=== PATIENT | female | born 1970 | race African-American/Black ===

== ENCOUNTER 2022-05-05 19:54 | Emergency (ER) | payer OTHER ==
[2022-05-05 20:06] VITALS: BP 189/109; PULSE 94; RESP 18; TEMP 97.9
[2022-05-05] MEDS ORDERED: dexAMETHasone 2 MG TAB PO STA (20:53)
--- NOTE | 2022-05-05 21:57 | XR ---
EXAMINATION TYPE: XR chest 2V DATE OF EXAM: 05/05/2022 COMPARISON: NONE HISTORY: Cough TECHNIQUE: 2 views FINDINGS: Heart and mediastinum are normal. Lungs are clear. Diaphragm is normal. Bony thorax is inta ct. There is cervical spine fusion surgery. IMPRESSION: Normal chest.
[2022-05-05] MEDS ORDERED: AZITHROMYCIN 500 MG TAB PO STA (22:49)
--- NOTE | 2022-05-05 22:53 | ED ---
General Adult HPI - General Chief complaint: ENT Stated complaint: IRINEO, throat pain Time Seen by Provider: 05/05/22 20:40 Source: patient, RN notes reviewed, old records reviewed Mode of arrival: ambulatory Limitations: no limitations - History of Present Illness Initial comments: Patient is a 51-year-old female who presents with Department complaining of upper respiratory type symptoms. Is a history of extensive neck surgeries as well as thyroid surgeries. Complaining of a cough, shortness of breath for the last day or so. Denies a sore throat but states that her throat feels swollen. She is [id number] nasal spray and Benadryl and felt better. Presents for further evaluation. States and the symptoms of struck multiple people at her work. She was not vaccinated for COVID-19. Endorses a nonproductive cough. Denies chest pain, abdominal pain, nausea, vomiting. Denies any difficulty swallowing or breathing. Denies headache. Denies ear pain. Does endorse some rhinorrhea. His no other acute complaint at this time. States she has expressed this before, and used her family members albuterol inhaler last year which did improve her symptoms. - Related Data Home Medications Medication Instructions Recorded Confirmed Cetirizine HCl [Zyrtec] 10 mg PO HS 05/05/22 05/05/22 diphenhydrAMINE HCL [Benadryl] 25 mg PO BID PRN 05/05/22 05/05/22 Previous Rx's Medication Instructions Recorded Albuterol Inhaler [Ventolin Hfa 1 puff INHALATION RT-QID #8 gm 05/05/22 Inhaler] Azithromycin [Zithromax] 250 mg PO DAILY 4 Days #4 tab 05/05/22 Allergies Allergy/AdvReac Type Severity Reaction Status Date / Time Iodinated Contrast Media AdvReac Unknown Verified 05/05/22 22:26 Sulfa (Sulfonamide AdvReac Unknown Verified 05/05/22 22:26 Antibiotics) Review of Systems ROS Statement: Those systems with pertinent positive or pertinent negative responses have been documented in the HPI. Review of Systems: CONST: Denies fever EYES: Denies blurry vision ENT: Endorses nasal congestion C/V: Denies Chest pain RESP: Denies shortness of breath GI: Denies abdominal pain : Denies dysuria SKIN: Denies rash. MSK: Denies joint pain. NEURO: Denies headache ROS Other: All systems not noted in ROS Statement are negative. Past Medical History Past Medical History: No Reported History Additional Past Medical History / Comment(s): back problems History of Any Multi-Drug Resistant Organisms: None Reported Past Surgical History: No Surgical Hx Reported Additional Past Surgical History / Comment(s): back surgeries Past Psychological History: No Psychological Hx Reported Smoking Status: Never smoker Past Alcohol Use History: Occasional Past Drug Use History: None Reported General Exam - General Exam Comments Initial Comments: General: Appears in no acute distress. HEAD: Normal with no signs of head trauma. EYES: PERRLA, EOMI, conjunctiva normal, no discharge. ENT: Hearing grossly intact, normal oropharynx. Mild rhinorrhea. No sinus tenderness to palpation. Posterior oropharynx unremarkable. No stridor auscultated. RESPIRATORY: Clear breath sounds bilaterally. No wheezes, rales, or rhonchi. C/V: Regular rate and rhythm. Peripheral pulses 2+ intact. S1 and S2 auscultated. ABD: Abdomen nondistended. EXT: No obvious deformity. SKIN: No rashes or lesions observed on exposed skin. NEURO: Alert and oriented 4. Limitations: no limitations Course Vital Signs 05/05/22 19:59 Temperature 97.9 F Pulse Rate 94 Respiratory 18 Rate Blood Pressure 189/109 O2 Sat by Pulse 96 Oximetry Medical Decision Making - Medical Decision Making Based on the patient's presentation and physical exam, I do believe she is having upper respiratory type illness. Did recommend we provide her with a dose of Decadron as well as obtain viral swabs and strep throat swab. Recommended chest x-ray as well. She was in agreement this plan. Vital signs are otherwise within normal limits. Viral signs are negative. Strep throat swab is negative. Chest x-ray shows no acute cardiopulmonary process. On reevaluation come patient remains unchanged. Vital signs remained within normal limits. I discussed results with the patient. I believe it is safer to be discharged home at this time. She is requesting antibiotic and I believe this is reasonable. She will be given a dose of azithromycin prior to discharge. She is also requesting albuterol inhaler which will be provided. I will provide the patient with a prescription for albuterol inhaler, azithromycin. I instructed the patient to follow up with their PCP in the next 1-3 days. I explained that the patient should return to the emergency department if they experience any worsening symptoms. Strict return precautions were discussed with the patient. The patient expressed understanding of these instructions. I answered all questions that the patient had. The patient was discharged home in good condition with their prescriptions and follow up information. - Lab Data Lab Results 05/05/22 05/05/22 Range/Units 21:34 21:41 Influenza Type A (PCR) Not Detected (Not Detectd) Influenza Type B (PCR) Not Detected (Not Detectd) RSV (PCR) Not Detected (Not Detectd) SARS-CoV-2 (PCR) Not Detected (Not Detectd) Group A Strep Rapid Negative (Negative) Disposition Clinical Impression: URI (upper respiratory infection) Disposition: HOME SELF-CARE Condition: Good Instructions (If sedation given, give patient instructions): Upper Respiratory Infection (ED) Prescriptions: Albuterol Inhaler [Ventolin Hfa Inhaler] 1 puff INHALATION RT-QID #8 gm Azithromycin [Zithromax] 250 mg PO DAILY 4 Days #4 tab Is patient prescribed a controlled substance at d/c from ED?: No Referrals: Nonstaff,Physician [Primary Care Provider] - 1-2 days Time of Disposition: 22:45
== END 2022-05-05 23:05 | disposition home or self-care (01) ==
LOC: EC 19:54
DX: J06.9 Acute upper respiratory infection, unspecified (principal); Z20.822 Contact with and (suspected) exposure to COVID-19; Z91.040 Latex allergy status; Z88.2 Allergy status to sulfonamides
CPT/HCPCS: 87081; 87430; 87636; 71046; 99284; J8540

== ENCOUNTER 2023-01-10 20:12 | Emergency (ER) | payer OTHER ==
[2023-01-10] MEDS ORDERED: predniSONE 20 MG TAB PO STA (22:14)
[2023-01-10] MEDS ORDERED: ALBUTEROL NEBULIZED 2.5 MG/3 ML INHALATION STA (22:14)
--- NOTE | 2023-01-10 23:27 | XR ---
EXAM: XR Chest, 2 Views CLINICAL HISTORY: ITS.REASON XR Reason: wheezing TECHNIQUE: Frontal and lateral views of the chest. COMPARISON: 05/05/2022 FINDINGS: Lungs: No consolidation. Pleural space: Unremarkable. No pneumothorax. Heart: No cardiomegaly. Bones/joints: No acute osseous abnormality. IMPRESSION: No acute cardiopulmonary abnormality.
--- NOTE | 2023-01-10 23:38 | ED ---
General Adult HPI - General Chief complaint: Upper Respiratory Infection Stated complaint: Difficulty breathing; chest congestion Time Seen by Provider: 01/10/23 21:36 Source: patient Mode of arrival: ambulatory Limitations: no limitations - History of Present Illness Initial comments: This patient is 52-year-old woman who presents with shortness of breath, cough, and wheeze getting worse over the course of past day and tonight. There was initial onset with some congestion and upper respiratory symptoms. The patient has not noted fever or chills. No chest pain. No leg pain or swelling. No change in urination or bowel movements. Onset/Timin -: days(s) Severity scale (1-10): 0 Consistency: constant Improves with: none Worsens with: none Associated Symptoms: cough, shortness of breath Treatments Prior to Arrival: none - Related Data Home Medications Medication Instructions Recorded Confirmed Cetirizine HCl [Zyrtec] 10 mg PO HS 05/05/22 05/05/22 diphenhydrAMINE HCL [Benadryl] 25 mg PO BID PRN 05/05/22 05/05/22 Previous Rx's Medication Instructions Recorded Albuterol Inhaler [Ventolin Hfa 1 puff INHALATION RT-QID #8 gm 05/05/22 Inhaler] Azithromycin [Zithromax] 250 mg PO DAILY 4 Days #4 tab 05/05/22 Albuterol Inhaler [Ventolin Hfa 2 puff INHALATION Q4HR PRN #8 gm 01/10/23 Inhaler] predniSONE 60 mg PO DAILY #30 tab 01/10/23 Allergies Allergy/AdvReac Type Severity Reaction Status Date / Time latex Allergy Rash/Hives Verified 01/10/23 21:32 Iodinated Contrast Media AdvReac Unknown Verified 01/10/23 21:32 Sulfa (Sulfonamide AdvReac Unknown Verified 01/10/23 21:32 Antibiotics) Review of Systems ROS Statement: Those systems with pertinent positive or pertinent negative responses have been documented in the HPI. ROS Other: All systems not noted in ROS Statement are negative. Constitutional: Denies: fever, chills Respiratory: Reports: cough, dyspnea, wheezes. Denies: hemoptysis Cardiovascular: Denies: chest pain, palpitations, edema, syncope Gastrointestinal: Denies: abdominal pain, vomiting, diarrhea Genitourinary: Denies: dysuria, hematuria Musculoskeletal: Denies: back pain Skin: Denies: rash Neurological: Denies: headache, weakness Past Medical History Past Medical History: No Reported History Additional Past Medical History / Comment(s): back problems History of Any Multi-Drug Resistant Organisms: None Reported Past Surgical History: Back Surgery Additional Past Surgical History / Comment(s): back surgeries, fibroids Past Psychological History: No Psychological Hx Reported Smoking Status: Never smoker Past Alcohol Use History: Occasional Past Drug Use History: None Reported General Exam Limitations: no limitations General appearance: alert, in no apparent distress Head exam: Present: atraumatic, normocephalic Eye exam: Present: normal appearance. Absent: scleral icterus, conjunctival injection Neck exam: Present: normal inspection Respiratory exam: Present: wheezes. Absent: respiratory distress, rales, rhonchi, stridor, accessory muscle use, decreased breath sounds Cardiovascular Exam: Present: regular rate, normal rhythm, normal heart sounds. Absent: systolic murmur, diastolic murmur, rubs, gallop GI/Abdominal exam: Present: soft. Absent: distended, tenderness, guarding, rebound, rigid, mass Extremities exam: Present: normal inspection, normal capillary refill. Absent: pedal edema, calf tenderness Back exam: Present: normal inspection. Absent: CVA tenderness (R), CVA tenderne ss (L) Neurological exam: Present: alert Skin exam: Present: warm, dry, intact, normal color. Absent: rash Course Vital Signs 01/10/23 01/10/23 01/10/23 21:27 23:09 23:18 Temperature 97.4 F L Pulse Rate 102 H 91 102 H Respiratory 20 Rate Blood Pressure 150/81 O2 Sat by Pulse 94 L Oximetry 01/10/23 23:43 Temperature 98.1 F Pulse Rate 82 Respiratory 16 Rate Blood Pressure 129/78 O2 Sat by Pulse 100 Oximetry Medical Decision Making - Medical Decision Making Patient is 52-year-old woman with initial onset of upper respiratory symptoms and now with cough and wheeze. Patient is feeling markedly better following medications here. Discussed appropriate further care and follow-up as well as return parameters. Was pt. sent in by a medical professional or institution (, PA, STOCK SORTER, urgent care, hospital, or senior care...) When possible be specific @ -[No] Did you speak to anyone other than the patient for history (EMS, parent, family, police, friend...)? What history was obtained from this source @ -[No] Did you review nursing and triage notes (agree or disagree)? Why? @ -[I reviewed and agree with nursing and triage notes] Were old charts reviewed (outside hosp., previous admission, EMS record, old EKG, old radiological studies, urgent care reports/EKG's, senior care records)? Report findings @ -[No old charts were reviewed] Differential Diagnosis (chest pain, altered mental status, abdominal pain women, abdominal pain men, vaginal bleeding, weakness, fever, dyspnea, syncope, headache, dizziness, GI bleed, back pain, seizure, CVA, palpatations, mental health, musculoskeletal)? @ -[Differential Dyspnea: Coronary syndrome, arrhythmia, tamponade, asthma, COPD, pulmonary embolism, pneumonia, pneumothorax, pulmonary effusion, anaphylaxis, diabetic ketoacidosis, flailed chest, pulmonary contusion, diaphragmatic rupture, anemia, neuromuscular, this is not meant to be an all-inclusive list. EKG interpreted by me (3pts min.). @ -[ X-rays interpreted by me (1pt min.). @ -[As above CT interpreted by me (1pt min.). @ -[None done] U/S interpreted by me (1pt. min.). @ -[None done] What testing was considered but not performed or refused? (CT, X-rays, U/S, labs)? Why? @ -[None] What meds were considered but not given or refused? Why? @ -[None] Did you discuss the management of the patient with other professionals (professionals i.e. , PA, STOCK SORTER, lab, RT, psych nurse, long term care social worker, forging press lever tender, teacher, equal opportunity officer, case assembler)? Give summary @ -[No] Was smoking cessation discussed for >3mins.? @ -[No] Was critical care preformed (if so, how long)? @ -[No] Were there social determinants of health that impacted care today? How? (Homelessness, low income, unemployed, alcoholism, drug addiction, transportation, low edu. Level, literacy, decrease access to med. care, detention, rehab)? @ -[No] Was there de-escalation of care discussed even if they declined (Discuss DNR or withdrawal of care, Hospice)? DNR status @ -[No] What co-morbidities impacted this encounter? (DM, HTN, Smoking, COPD, CAD, Cancer, CVA, ARF, Chemo, Hep., AIDS, mental health diagnosis, sleep apnea, morbid obesity)? @ -[None] Was patient admitted / discharged? Hospital course, mention meds given and route, prescriptions, significant lab abnormalities, going to OR and other pertinent info. @ -Discharged Undiagnosed new problem with uncertain prognosis? @ -[No] Drug Therapy requiring intensive monitoring for toxicity (Heparin, Nitro, Insulin, Cardizem)? @ -[No] Were any procedures done? @ -[No] Diagnosis/symptom? @ -[Acute reactive airway disease Acute, or Chronic, or Acute on Chronic? @ -[Acute Uncomplicated (without systemic symptoms) or Complicated (systemic symptoms)? @ -[Uncomplicated Side effects of treatment? @ -[No] Exacerbation, Progression, or Severe Exacerbation? @ -[No] Poses a threat to life or bodily function? How? (Chest pain, [place], [place], pneumonia, PE, COPD, DKA, ARF, appy, cholecystitis, CVA, Diverticulitis, Homicidal, Suicidal, threat to staff... and all critical care pts) @ -[No] - Lab Data Lab Results 01/10/23 Range/Units 21:44 Influenza Type A (PCR) Not Detected (Not Detectd) Influenza Type B (PCR) Not Detected (Not Detectd) RSV (PCR) Not Detected (Not Detectd) SARS-CoV-2 (PCR) Not Detected (Not Detectd) Disposition Clinical Impression: Reactive airway disease Disposition: HOME SELF-CARE Condition: Good Instructions (If sedation given, give patient instructions): Reactive Airways Disease (ED) Prescriptions: predniSONE 60 mg PO DAILY #30 tab Albuterol Inhaler [Ventolin Hfa Inhaler] 2 puff INHALATION Q4HR PRN #8 gm PRN Reason: Wheezing Is patient prescribed a controlled substance at d/c from ED?: No Referrals: None,Stated [Primary Care Provider] - 1-2 days Fauzia Vallecillo MD [STAFF PHYSICIAN] - 1-2 days
[2023-01-10 23:44] VITALS: BP 129/78; PULSE 82; RESP 16; TEMP 98.1
== END 2023-01-10 23:58 | disposition home or self-care (01) ==
LOC: EC 20:12
DX: J45.909 Unspecified asthma, uncomplicated (principal); Z91.040 Latex allergy status; Z91.048 Other nonmedicinal substance allergy status; Z88.2 Allergy status to sulfonamides; Z88.1 Allergy status to other antibiotic agents; Z20.822 Contact with and (suspected) exposure to COVID-19
CPT/HCPCS: 94640; 87636; 71046; 99285; J7512

== ENCOUNTER 2023-02-13 21:06 | Emergency (ER) | payer OTHER ==
--- NOTE | 2023-02-13 23:07 | ED ---
SOB HPI - General Source: patient, RN notes reviewed Mode of arrival: ambulatory Limitations: no limitations - History of Present Illness MD Complaint: shortness of breath <Makenzie Joya - Last Filed: 02/13/23 23:06> <Brianna Gannon - Last Filed: 02/14/23 02:58> - General Chief Complaint: Upper Respiratory Infection Stated Complaint: SOB Time Seen by Provider: 02/13/23 23:05 - History of Present Illness Initial Comments: This is a 52-year-old female who presents to the emergency department for complaints of shortness of breath. Describes this as being intermittent. This improves with her albuterol inhaler. She's been to the emergency department for similar complaints in the past, however she has never been diagnosed with asthma or COPD. (Makenzie Joya) - Related Data Home Medications Medication Instructions Recorded Confirmed Cetirizine HCl [Zyrtec] 10 mg PO HS 05/05/22 05/05/22 diphenhydrAMINE HCL [Benadryl] 25 mg PO BID PRN 05/05/22 05/05/22 Previous Rx's Medication Instructions Recorded Albuterol Inhaler [Ventolin Hfa 1 puff INHALATION RT-QID #8 gm 05/05/22 Inhaler] Azithromycin [Zithromax] 250 mg PO DAILY 4 Days #4 tab 05/05/22 Albuterol Inhaler [Ventolin Hfa 2 puff INHALATION Q4HR PRN #8 gm 01/10/23 Inhaler] predniSONE 60 mg PO DAILY #30 tab 01/10/23 Albuterol Inhaler [Ventolin Hfa 1 - 2 puff INHALATION Q6H PRN 30 02/14/23 Inhaler] Days #1 each Allergies Allergy/AdvReac Type Severity Reaction Status Date / Time latex Allergy Rash/Hives Verified 02/13/23 22:19 Iodinated Contrast Media AdvReac Unknown Verified 02/13/23 22:19 Sulfa (Sulfonamide AdvReac Unknown Verified 02/13/23 22:19 Antibiotics) Review of Systems ROS Other: All systems not noted in ROS Statement are negative. <Makenzie Joya - Last Filed: 02/13/23 23:06> ROS Other: All systems not noted in ROS Statement are negative. <Brianna Gannon - Last Filed: 02/14/23 02:58> ROS Statement: Those systems with pertinent positive or pertinent negative responses have been documented in the HPI. Past Medical History Past Medical History: No Reported History Additional Past Medical History / Comment(s): back problems History of Any Multi-Drug Resistant Organisms: None Reported Past Surgical History: Back Surgery Additional Past Surgical History / Comment(s): back surgeries, fibroids Past Psychological History: No Psychological Hx Reported Smoking Status: Never smoker Past Alcohol Use History: Occasional Past Drug Use History: None Reported <Makenzie Joya - Last Filed: 02/13/23 23:06> General Exam Limitations: no limitations <Makenzie Joya - Last Filed: 02/13/23 23:06> Limitations: no limitations General appearance: alert, in no apparent distress Head exam: Present: atraumatic, normocephalic, normal inspection Eye exam: Present: normal appearance, PERRL, EOMI. Absent: scleral icterus, conjunctival injection, periorbital swelling ENT exam: Present: normal exam, normal oropharynx, mucous membranes moist Neck exam: Present: normal inspection, full ROM. Absent: lymphadenopathy Respiratory exam: Present: wheezes, decreased breath sounds (bibasilar). Absent: respiratory distress, rales, rhonchi, stridor, accessory muscle use Cardiovascular Exam: Present: regular rate, normal rhythm, normal heart sounds. Absent: systolic murmur, diastolic murmur, rubs, gallop, clicks GI/Abdominal exam: Present: soft, normal bowel sounds. Absent: distended, tenderness, guarding, rebound, rigid Rectal exam: Present: deferred Extremities exam: Present: normal inspection Back exam: Present: normal inspection Neurological exam: Present: alert, oriented X3, CN II-XII intact Psychiatric exam: Present: normal affect, normal mood Skin exam: Present: warm, dry, intact, normal color. Absent: rash <Brianna Gannon - Last Filed: 02/14/23 02:58> - General Exam Comments Initial Comments: Visual Physical Exam Vital signs reviewed General: Well-appearing, nontoxic, no acute distress. Head: Normocephalic, atraumatic Eyes: PERRLA, EOMI ENT: Airway patent Chest: Nonlabored breathing Skin: No visual rash, normal skin tone Neuro: Alert and oriented 3 Musculoskeletal: No gross abnormalities (Makenzie Joya) Course Vital Signs 02/13/23 02/14/23 02/14/23 22:19 01:35 01:43 Pulse Rate 106 H 103 H 99 Respiratory 18 Rate Blood Pressure 155/99 O2 Sat by Pulse 98 Oximetry Medical Decision Making - Lab Data Result diagrams: 02/14/23 00:27 02/14/23 00:27 <TingleyBrianna - Last Filed: 02/14/23 02:58> - Medical Decision Making Was pt. sent in by a medical professional or institution (, PA, SCREWHEAD POLISHER, urgent care, hospital, or group home...) When possible be specific @ -No Did you speak to anyone other than the patient for history (EMS, parent, family, police, friend...)? What history was obtained from this source @ -No Did you review nursing and triage notes (agree or disagree)? Why? @ -I reviewed and agree with nursing and triage notes Were old charts reviewed (outside hosp., previous admission, EMS record, old EKG, old radiological studies, urgent care reports/EKG's, group home records)? Report findings @ -No old charts were reviewed Differential Diagnosis (chest pain, altered mental status, abdominal pain women, abdominal pain men, vaginal bleeding, weakness, fever, dyspnea, syncope, headache, dizziness, GI bleed, back pain, seizure, CVA, palpatations, mental health, musculoskeletal)? @ -Differential Dyspnea: Coronary syndrome, arrhythmia, tamponade, asthma, COPD, pulmonary embolism, pneumonia, pneumothorax, pulmonary effusion, anaphylaxis, diabetic ketoacidosis, flailed chest, pulmonary contusion, diaphragmatic rupture, anemia, neuromuscular, this is not meant to be an all-inclusive list. EKG interpreted by me (3pts min.). @ -None done X-rays interpreted by me (1pt min.). @ -Checks x-ray two-view: No consolidation, pleural effusion or pneumothorax. CT interpreted by me (1pt min.). @ -None done U/S interpreted by me (1pt. min.). @ -None done What testing was considered but not performed or refused? (CT, X-rays, U/S, labs)? Why? @ -None What meds were considered but not given or refused? Why? @ -None Did you discuss the management of the patient with other professionals (professionals i.e. DrJacquie, PA, SCREWHEAD POLISHER, lab, RT, psych nurse, web content & social media manager, tour coordinator, teacher, campus safety officer, supervisor case loading)? Give summary @ -No Was smoking cessation discussed for >3mins.? @ -No Was critical care preformed (if so, how long)? @ -No Were there social determinants of health that impacted care today? How? (Homelessness, low income, unemployed, alcoholism, drug addiction, transportation, low edu. Level, literacy, decrease access to med. care, group home, re hab)? @ -No Was there de-escalation of care discussed even if they declined (Discuss DNR or withdrawal of care, Hospice)? DNR status @ -No What co-morbidities impacted this encounter? (DM, HTN, Smoking, COPD, CAD, Cancer, CVA, ARF, Chemo, Hep., AIDS, mental health diagnosis, sleep apnea, morbid obesity)? @ -None Was patient admitted / discharged? Hospital course, mention meds given and route, prescriptions, significant lab abnormalities, going to OR and other pertinent info. @ -52-year-old -[place] female presenting to the emergency room complaints of shortness of breath and wheeze which she feels is ALLERGIC in nature however after ambulating to chest x-ray which was ordered by triaging provider she developed a significant wheeze. She was given IM Depo-Medrol which seemed to worsen her wheeze though she has tolerated oral steroids in the past. Her viral solving for COVID, RSV and influenza was negative; she was given a breathing treatment with her wheeze worsened and wheeze continued to persist. Consequently she was given a dose of IM and a drill. Her wheeze did improve somewhat IM Benadryl. Advised patient recommended admission for magnesium infusion, supplemental oxygen, continued nebulized treatments and further evaluation of concerning abnormal response to the Depo-Medrol with previous oral tolerance of steroids. Patient does not wish to remain in the hospital. Will provide a prescription for albuterol inhaler to her pharmacy. Patient is leaving AGAINST MEDICAL ADVICE despite her asthma bronchitis with persistent wheeze Undiagnosed new problem with uncertain prognosis? @ -No Drug Therapy requiring intensive monitoring for toxicity (Heparin, Nitro, Insulin, Cardizem)? @ -No Were any procedures done? @ -No Diagnosis/symptom? @ -Asthmatic bronchitis Acute, or Chronic, or Acute on Chronic? @ -Acute on chronic Uncomplicated (without systemic symptoms) or Complicated (systemic symptoms)? @ -Complicated Side effects of treatment? @ -No Exacerbation, Progression, or Severe Exacerbation? @ -Exacerbation Poses a threat to life or bodily function? How? (Chest pain, [place], [place], pneumonia, PE, COPD, DKA, ARF, appy, cholecystitis, CVA, Diverticulitis, Homicidal, Suicidal, threat to staff... and all critical care pts) @ -Yes, wheeze persists despite nebulized treatments, steroid and Benadryl. Case discussed with Dr. Nevarez. ([facility]) - Lab Data Lab Results 02/14/23 02/14/23 02/14/23 Range/Units 00:25 00:27 00:27 WBC 6.7 (3.8-10.6) k/uL RBC 5.42 H (3.80-5.40) m/uL Hgb 14.1 (11.4-16.0) gm/dL Hct 43.2 (34.0-46.0) % MCV 79.7 L (80.0-100.0) fL MCH 26.0 (25.0-35.0) pg MCHC 32.6 (31.0-37.0) g/dL RDW 14.1 (11.5-15.5) % Plt Count 239 (150-450) k/uL MPV 7.5 Neutrophils % 48 % Lymphocytes % 35 % Monocytes % 6 % Eosinophils % 8 % Basophils % 0 % Neutrophils # 3.2 (1.3-7.7) k/uL Lymphocytes # 2.3 (1.0-4.8) k/uL Monocytes # 0.4 (0-1.0) k/uL Eosinophils # 0.6 (0-0.7) k/uL Basophils # 0.0 (0-0.2) k/uL Sodium 137 (137-145) mmol/L Potassium 4.1 (3.5-5.1) mmol/L Chloride 106 (98-107) mmol/L Carbon Dioxide 25 (22-30) mmol/L Anion Gap 6 mmol/L BUN 14 (7-17) mg/dL Creatinine 0.51 L (0.52-1.04) mg/dL Est GFR (CKD-EPI)AfAm >90 (>60 ml/min/1.73 sqM) Est GFR (CKD-EPI)NonAf >90 (>60 ml/min/1.73 sqM) Glucose 109 H (74-99) mg/dL Plasma Lactic Acid Gerardo (0.7-2.0) mmol/L Calcium 8.8 (8.4-10.2) mg/dL Total Bilirubin 0.6 (0.2-1.3) mg/dL AST 40 H (14-36) U/L ALT 29 (4-34) U/L Alkaline Phosphatase 89 (38-126) U/L Total Protein 6.7 (6.3-8.2) g/dL Albumin 3.8 (3.5-5.0) g/dL Influenza Type A (PCR) Not Detected (Not Detectd) Influenza Type B (PCR) Not Detected (Not Detectd) RSV (PCR) Not Detected (Not Detectd) SARS-CoV-2 (PCR) Not Detected (Not Detectd) 02/14/23 Range/Units 00:27 WBC (3.8-10.6) k/uL RBC (3.80-5.40) m/uL Hgb (11.4-16.0) gm/dL Hct (34.0-46.0) % MCV (80.0-100.0) fL MCH (25.0-35.0) pg MCHC (31.0-37.0) g/dL RDW (11.5-15.5) % Plt Count (150-450) k/uL MPV Neutrophils % % Lymphocytes % % Monocytes % % Eosinophils % % Basophils % % Neutrophils # (1.3-7.7) k/uL Lymphocytes # (1.0-4.8) k/uL Monocytes # (0-1.0) k/uL Eosinophils # (0-0.7) k/uL Basophils # (0-0.2) k/uL Sodium (137-145) mmol/L Potassium (3.5-5.1) mmol/L Chloride (98-107) mmol/L Carbon Dioxide (22-30) mmol/L Anion Gap mmol/L BUN (7-17) mg/dL Creatinine (0.52-1.04) mg/dL Est GFR (CKD-EPI)AfAm (>60 ml/min/1.73 sqM) Est GFR (CKD-EPI)NonAf (>60 ml/min/1.73 sqM) Glucose (74-99) mg/dL Plasma Lactic Acid Gerardo 1.4 (0.7-2.0) mmol/L Calcium (8.4-10.2) mg/dL Total Bilirubin (0.2-1.3) mg/dL AST (14-36) U/L ALT (4-34) U/L Alkaline Phosphatase (38-126) U/L Total Protein (6.3-8.2) g/dL Albumin (3.5-5.0) g/dL Influenza Type A (PCR) (Not Detectd) Influenza Type B (PCR) (Not Detectd) RSV (PCR) (Not Detectd) SARS-CoV-2 (PCR) (Not Detectd) Disposition <Makenzie Joya - Last Filed: 02/13/23 23:06> <Brianna Gannon - Last Filed: 02/14/23 02:58> Clinical Impression: Asthmatic bronchitis Disposition: LEFT AGAINST MEDICAL ADVICE Condition: Undetermined Prescriptions: Albuterol Inhaler [Ventolin Hfa Inhaler] 1 - 2 puff INHALATION Q6H PRN 30 Days #1 each PRN Reason: Shortness Of Breath Referrals: None,Stated [Primary Care Provider] - 1-2 days
--- NOTE | 2023-02-13 23:46 | XR ---
EXAMINATION TYPE: XR chest 2V DATE OF EXAM: 02/13/2023 COMPARISON: 12/21/2022 INDICATION: Difficulty in breathing TECHNIQUE: Frontal and lateral views of the chest are obtained. FINDINGS: The heart size is normal. The pulmonary vasculature is normal. The lungs are clear. IMPRESSION: 1. No acute pulmonary process.
[2023-02-14] MEDS ORDERED: methylPREDNISolone ACETATE 80 MG/ML 1 ML VIAL IM STA (00:08)
[2023-02-14 00:42] LABS: Basophils % (A) 0 %; Eosinophils # (A) 0.6 k/uL (0-0.7); Eosinophils % (A) 8 %; HCT 43.2 % (34.0-46.0); HGB 14.1 gm/dL (11.4-16.0); Lymphocytes # (A) 2.3 k/uL (1.0-4.8); Lymphocytes % (A) 35 %; MCHC 32.6 g/dL (31.0-37.0); MCV 79.7 fL (80.0-100.0); Mean Platelet Volume 7.5; Monocytes # (A) 0.4 k/uL (0-1.0); Monocytes % (A) 6 %; Neutrophils # (A) 3.2 k/uL (1.3-7.7); Neutrophils % (A) 48 %; Platelet Count 239 k/uL (150-450); RBC 5.42 m/uL (3.80-5.40); RDW 14.1 % (11.5-15.5); WBC 6.7 k/uL (3.8-10.6)
[2023-02-14 00:53] LABS: ALT 29 U/L (4-34); AST 40 U/L (14-36); African American GFR (CKD) >90 (>60 ml/min/1.73 sqM); Albumin 3.8 g/dL (3.5-5.0); Alkaline Phosphatase 89 U/L (38-126); Anion Gap 6 mmol/L; Blood Urea Nitrogen 14 mg/dL (7-17); Calcium 8.8 mg/dL (8.4-10.2); Carbon Dioxide 25 mmol/L (22-30); Chloride 106 mmol/L (98-107); Glucose 109 mg/dL (74-99); Non-African American GFR(CKD) >90 (>60 ml/min/1.73 sqM); Sodium 137 mmol/L (137-145); Total Bilirubin 0.6 mg/dL (0.2-1.3); Total Protein 6.7 g/dL (6.3-8.2)
[2023-02-14 00:54] LABS: Potassium 4.1 mmol/L (3.5-5.1)
[2023-02-14] MEDS ORDERED: ALBUTEROL NEBULIZED 2.5 MG/3 ML INHALATION STA (01:22)
[2023-02-14] MEDS ORDERED: diphenhydrAMINE 50 MG/ML 1 ML VIAL IM STA (02:04)
[2023-02-14 02:49] VITALS: BP 151/111; PULSE 91; RESP 16; TEMP 98.8
--- NOTE | 2023-02-14 19:57 | ED ---
Medical Decision Making - Medical Decision Making Was asked to transmit albuterol 2 the patient's alternate pharmacy - Lab Data Result diagrams: 02/14/23 00:27 02/14/23 00:27 Lab Results 02/14/23 02/14/23 02/14/23 Range/Units 00:25 00:27 00:27 WBC 6.7 (3.8-10.6) k/uL RBC 5.42 H (3.80-5.40) m/uL Hgb 14.1 (11.4-16.0) gm/dL Hct 43.2 (34.0-46.0) % MCV 79.7 L (80.0-100.0) fL MCH 26.0 (25.0-35.0) pg MCHC 32.6 (31.0-37.0) g/dL RDW 14.1 (11.5-15.5) % Plt Count 239 (150-450) k/uL MPV 7.5 Neutrophils % 48 % Lymphocytes % 35 % Monocytes % 6 % Eosinophils % 8 % Basophils % 0 % Neutrophils # 3.2 (1.3-7.7) k/uL Lymphocytes # 2.3 (1.0-4.8) k/uL Monocytes # 0.4 (0-1.0) k/uL Eosinophils # 0.6 (0-0.7) k/uL Basophils # 0.0 (0-0.2) k/uL Sodium 137 (137-145) mmol/L Potassium 4.1 (3.5-5.1) mmol/L Chloride 106 (98-107) mmol/L Carbon Dioxide 25 (22-30) mmol/L Anion Gap 6 mmol/L BUN 14 (7-17) mg/dL Creatinine 0.51 L (0.52-1.04) mg/dL Est GFR (CKD-EPI)AfAm >90 (>60 ml/min/1.73 sqM) Est GFR (CKD-EPI)NonAf >90 (>60 ml/min/1.73 sqM) Glucose 109 H (74-99) mg/dL Plasma Lactic Acid Gerardo (0.7-2.0) mmol/L Calcium 8.8 (8.4-10.2) mg/dL Total Bilirubin 0.6 (0.2-1.3) mg/dL AST 40 H (14-36) U/L ALT 29 (4-34) U/L Alkaline Phosphatase 89 (38-126) U/L Total Protein 6.7 (6.3-8.2) g/dL Albumin 3.8 (3.5-5.0) g/dL Influenza Type A (PCR) Not Detected (Not Detectd) Influenza Type B (PCR) Not Detected (Not Detectd) RSV (PCR) Not Detected (Not Detectd) SARS-CoV-2 (PCR) Not Detected (Not Detectd) 02/14/23 Range/Units 00:27 WBC (3.8-10.6) k/uL RBC (3.80-5.40) m/uL Hgb (11.4-16.0) gm/dL Hct (34.0-46.0) % MCV (80.0-100.0) fL MCH (25.0-35.0) pg MCHC (31.0-37.0) g/dL RDW (11.5-15.5) % Plt Count (150-450) k/uL MPV Neutrophils % % Lymphocytes % % Monocytes % % Eosinophils % % Basophils % % Neutrophils # (1.3-7.7) k/uL Lymphocytes # (1.0-4.8) k/uL Monocytes # (0-1.0) k/uL Eosinophils # (0-0.7) k/uL Basophils # (0-0.2) k/uL Sodium (137-145) mmol/L Potassium (3.5-5.1) mmol/L Chloride (98-107) mmol/L Carbon Dioxide (22-30) mmol/L Anion Gap mmol/L BUN (7-17) mg/dL Creatinine (0.52-1.04) mg/dL Est GFR (CKD-EPI)AfAm (>60 ml/min/1.73 sqM) Est GFR (CKD-EPI)NonAf (>60 ml/min/1.73 sqM) Glucose (74-99) mg/dL Plasma Lactic Acid Gerardo 1.4 (0.7-2.0) mmol/L Calcium (8.4-10.2) mg/dL Total Bilirubin (0.2-1.3) mg/dL AST (14-36) U/L ALT (4-34) U/L Alkaline Phosphatase (38-126) U/L Total Protein (6.3-8.2) g/dL Albumin (3.5-5.0) g/dL Influenza Type A (PCR) (Not Detectd) Influenza Type B (PCR) (Not Detectd) RSV (PCR) (Not Detectd) SARS-CoV-2 (PCR) (Not Detectd) Disposition Clinical Impression: Asthmatic bronchitis Disposition: LEFT AGAINST MEDICAL ADVICE Condition: Undetermined Prescriptions: Albuterol Inhaler [Ventolin Hfa Inhaler] 1 - 2 puff INHALATION Q6H PRN 30 Days #1 each PRN Reason: Shortness Of Breath Albuterol Inhaler [Ventolin Hfa Inhaler] 2 puff INHALATION Q4HR PRN #8 gm PRN Reason: Wheezing Referrals: None,Stated [Primary Care Provider] - 1-2 days
== END 2023-02-14 03:03 | disposition left against medical advice (07) ==
LOC: EC 21:06
DX: J45.909 Unspecified asthma, uncomplicated (principal); Z88.1 Allergy status to other antibiotic agents; Z88.2 Allergy status to sulfonamides; Z91.040 Latex allergy status; Z20.822 Contact with and (suspected) exposure to COVID-19; Z53.29 Procedure and treatment not carried out because of patient's decision for other reasons
CPT/HCPCS: 36415; 71046; 80053; 83605; 85025; 87636; 94640; 99285

== ENCOUNTER 2023-03-05 18:53 | Emergency (ER) | payer OTHER ==
[2023-03-05 19:21] VITALS: BP 165/98; TEMP 98.2
[2023-03-05] MEDS ORDERED: ALBUTEROL NEBULIZED 2.5 MG/3 ML INHALATION STA (20:12)
--- NOTE | 2023-03-05 20:32 | XR ---
EXAMINATION TYPE: XR chest 2V DATE OF EXAM: 03/05/2023 8:28 PM COMPARISON: Chest radiographs from 02/13/2023 TECHNIQUE: XR chest 2V Frontal and lateral views of the chest. CLINICAL INDICATION:Female, 52 years old with history of shortness of breath; FINDINGS: Lungs/Pleura: There is no evidence of pleural effusion, focal consolidation, or pneumothorax. Pulmonary vascularity: Unremarkable. Heart/mediastinum: Cardiomediastinal silhouette is unremarkable. Musculoskeletal: No acute osseous pathology. Mild multilevel degenerative disc disease of the thoraci c spine. Partial visualization of cervical fusion hardware. IMPRESSION: No acute cardiopulmonary disease/process.
--- NOTE | 2023-03-05 22:28 | ED ---
General Adult HPI - General Chief complaint: Upper Respiratory Infection Stated complaint: SOB Time Seen by Provider: 03/05/23 19:54 Source: patient, RN notes reviewed Mode of arrival: ambulatory Limitations: no limitations - History of Present Illness Initial comments: 52-year-old [place] female with no significant past medical history presents the emergency department with a chief complaint of shortness of breath. Patient reports over the last 2 weeks she feels like she has had phlegm in her throat which she cannot recall. She's been trying multiple [id number] medications which have helped for a little bit however are no longer working. She was prescribed a albuterol inhaler 2 weeks ago when she was evaluated however she ran out. She denies fever, chills, cough, dyspnea, chest pain, palpitations. Denies tobacco product use. - Related Data Home Medications Medication Instructions Recorded Confirmed Cetirizine HCl [Zyrtec] 10 mg PO HS 05/05/22 05/05/22 diphenhydrAMINE HCL [Benadryl] 25 mg PO BID PRN 05/05/22 05/05/22 Previous Rx's Medication Instructions Recorded Albuterol Inhaler [Ventolin Hfa 1 puff INHALATION RT-QID #8 gm 05/05/22 Inhaler] Azithromycin [Zithromax] 250 mg PO DAILY 4 Days #4 tab 05/05/22 Albuterol Inhaler [Ventolin Hfa 2 puff INHALATION Q4HR PRN #8 gm 01/10/23 Inhaler] predniSONE 60 mg PO DAILY #30 tab 01/10/23 Albuterol Inhaler [Ventolin Hfa 1 - 2 puff INHALATION Q6H PRN 30 02/14/23 Inhaler] Days #1 each Albuterol Inhaler [Ventolin Hfa 2 puff INHALATION Q4HR PRN #8 gm 02/14/23 Inhaler] Albuterol Inhaler [Ventolin Hfa 1 puff INHALATION QID #8 gm 03/05/23 Inhaler] predniSONE 50 mg PO DAILY #5 tab 03/05/23 Allergies Allergy/AdvReac Type Severity Reaction Status Date / Time latex Allergy Rash/Hives Verified 03/05/23 19:21 Iodinated Contrast Media AdvReac Unknown Verified 03/05/23 19:21 Sulfa (Sulfonamide AdvReac Unknown Verified 06/19/23 19:21 Antibiotics) Review of Systems ROS Statement: Those systems with pertinent positive or pertinent negative responses have been documented in the HPI. ROS Other: All systems not noted in ROS Statement are negative. Past Medical History Past Medical History: No Reported History Additional Past Medical History / Comment(s): back problems History of Any Multi-Drug Resistant Organisms: None Reported Past Surgical History: Back Surgery Additional Past Surgical History / Comment(s): back surgeries, fibroids Past Psychological History: No Psychological Hx Reported Smoking Status: Never smoker Past Alcohol Use History: Occasional Past Drug Use History: None Reported General Exam - General Exam Comments Initial Comments: General: Alert, in no acute distress Head: atraumatic normocephalic. Eyes PERRL, EOMI intact, mucous membranes moist Respiratory: Lungs clear to auscultation bilaterally, except for a wheeze in all ramirez Cardiovascular: Rate regular rate and rhythm Abdominal: Soft without guarding or rebound Extremities: Normal inspection with full range of motion and normal capillary refill Neuroogic: alert and oriented 3, CN II-XII intact, able to ambulate with steady gait Skin: warm dry and intact with normal color Limitations: no limitations Course Vital Signs 03/05/23 03/05/23 03/05/23 19:18 20:36 20:47 Temperature 98.2 F Pulse Rate 101 H 100 100 Respiratory 20 20 Rate Blood Pressure 165/98 O2 Sat by Pulse 96 98 Oximetry 03/05/23 03/05/23 20:57 22:35 Temperature Pulse Rate 101 H 97 Respiratory 18 Rate Blood Pressure O2 Sat by Pulse 98 Oximetry Medical Decision Making - Medical Decision Making Was pt. sent in by a medical professional or institution (Dr. PA, OPERATIONAL COMMUNICATION CHIEF, urgent care, hospital, or [facility]...) When possible be specific @ -[No] Did you speak to anyone other than the patient for history (EMS, parent, family, police, friend...)? What history was obtained from this source @ -[No] Did you review nursing and triage notes (agree or disagree)? Why? @ -[I reviewed and agree with nursing and triage notes] Were old charts reviewed (outside hosp., previous admission, EMS record, old EKG, old radiological studies, urgent care reports/EKG's, [facility] records)? Report findings @ -[No old charts were reviewed] Differential Diagnosis (chest pain, altered mental status, abdominal pain women, abdominal pain men, vaginal bleeding, weakness, fever, dyspnea, syncope, headache, dizziness, GI bleed, back pain, seizure, CVA, palpatations, mental health, musculoskeletal)? @ -[not applicable] EKG interpreted by me (3pts min.). @ -[As above] X-rays interpreted by me (1pt min.). @ -Chest x-ray negative for any evidence of acute Pleural process or consolidation CT interpreted by me (1pt min.). @ -[None done] U/S interpreted by me (1pt. min.). @ -[None done] What testing was considered but not performed or refused? (CT, X-rays, U/S, labs)? Why? @ -[None] What meds were considered but not given or refused? Why? @ -[None] Did you discuss the management of the patient with other professionals (professionals i.e. , PA, OPERATIONAL COMMUNICATION CHIEF, lab, RT, psych nurse, psych social worker, nitriles lab technician, teacher, chief merchandising officer, case work aide)? Give summary @ -[No] Was smoking cessation discussed for >3mins.? @ -[No] Was critical care preformed (if so, how long)? @ -[No] Were there social determinants of health that impacted care today? How? (Homelessness, low income, unemployed, alcoholism, drug addiction, transportation, low edu. Level, literacy, decrease access to med. care, shelter, rehab)? @ -[No] Was there de-escalation of care discussed even if they declined (Discuss DNR or withdrawal of care, Hospice)? DNR status @ -[No] What co-morbidities impacted this encounter? (DM, HTN, Smoking, COPD, CAD, Cancer, CVA, ARF, Chemo, Hep., AIDS, mental health diagnosis, sleep apnea, morbid obesity)? @ -[None] Was patient admitted / discharged? Hospital course, mention meds given and route, prescriptions, significant lab abnormalities, going to OR and other pertinent info. @ Discharged. This is a 52-year-old female who presents the emergency department with shortness of breath. Patient had a thorough history and physical exam performed on the ED. Heart rate regular rate and rhythm, lungs with expiratory wheeze, abdomen soft non-tender. Patient had imaging which was essentially negative. Patient was given albuterol tx with symptomatic relief. He was given a prescription for prednisone and albuterol inhaler. I discussed the results in detail with the patient verbalized understanding and all questions were addressed. Return precautions were discussed at length. She will be discharged in stable condition. Case discussed with Dr. Marie [facility] who agrees with plan of care Undiagnosed new problem with uncertain prognosis? @ -[No] Drug Therapy requiring intensive monitoring for toxicity (Heparin, Nitro, Insulin, Cardizem)? @ -[No] Were any procedures done? @ -[No] Diagnosis/symptom? @ -Shortness of Breath Acute, or Chronic, or Acute on Chronic? @ -Acute Uncomplicated (without systemic symptoms) or Complicated (systemic symptoms)? @ -Uncomplicated Side effects of treatment? @ -[No] Exacerbation, Progression, or Severe Exacerbation? @ -[No] Poses a threat to life or bodily function? How? (Chest pain, [place], [place], pneumonia, PE, COPD, DKA, ARF, appy, cholecystitis, CVA, Diverticulitis, Homicidal, Suicidal, threat to staff... and all critical care pts) @ -Low likelihood Disposition Clinical Impression: Wheeze Disposition: HOME SELF-CARE Condition: Stable Instructions (If sedation given, give patient instructions): How to Use a Metered-Dose Inhaler (ED) Additional Instructions: Please return to the nearest emergency department with symptoms worsen or persist Prescriptions: predniSONE 50 mg PO DAILY #5 tab Albuterol Inhaler [Ventolin Hfa Inhaler] 1 puff INHALATION QID #8 gm Is patient prescribed a controlled substance at d/c from ED?: No Referrals: None,Stated [Primary Care Provider] - 1-2 days Time of Disposition: 22:28
[2023-03-05 22:35] VITALS: PULSE 97; RESP 18
== END 2023-03-05 22:35 | disposition home or self-care (01) ==
LOC: EC 18:53
DX: R06.2 Wheezing (principal); Z88.2 Allergy status to sulfonamides; Z91.041 Radiographic dye allergy status; Z91.040 Latex allergy status
CPT/HCPCS: 71046; 94640; 99284

== ENCOUNTER → 2025-01-28 | Outpatient (CLI) | payer BC ==
--- NOTE | 2025-01-28 13:22 | MM ---
Reason for Exam: Screening (asymptomatic). Patient History: Last menstrual period: 08/06/2024 Risk Values: Parisa 5 year model risk: 0.7%. NCI Lifetime model risk: 5.8%. Prior Study Comparison: No prior studies available for comparison. Tissue Density: The breasts are heterogeneously dense, which may obscure small masses. Findings: Analyzed By CAD. Edematous skin thickening and trabeculation is present bilaterally. Benign-appearing bilateral axillary lymph nodes are seen. There is no suspicious group of microcalcifications or suspicious mass in either breast. Overall Assessment: Incomplete: need additional imaging evaluation, BI-RAD 0 Management: Diagnostic Breast Ultrasound of both breasts. Advise clinical correlation. Differential includes heart failure. Bilateral inflammatory carcinoma extremely unlikely. Other etiologies not excluded. Ultrasound evaluation bilaterally should be considered based on clinical correlation. Patient should continue monthly self-breast exams. A clinical breast exam by your physician is recommended on an annual basis. This exam should not preclude additional follow-up of suspicious palpable abnormalities. Note on Parisa scores and lifetime risk: 1. A Parisa score greater than 3% is considered moderate risk. If this is the case, consider specialist referral to assess eligibility for a risk reducing agent. 2. If overall lifetime risk for the development of breast cancer is 20% or higher, the patient may qualify for future screening with alternating mammogram and breast MRI. [facility], , 01/28/2025 1:19 PM. Electronically signed and approved by: Paul Alvarez M.D.
== END | disposition home or self-care (01) ==
LOC: RADMAMWWP 09:46
PROVIDERS: ATTEND Family Medicine
DX: Z12.31 Encounter for screening mammogram for malignant neoplasm of breast (principal); R92.333 Mammographic heterogeneous density, bilateral breasts
CPT/HCPCS: 77063; 77067

== ENCOUNTER → 2025-01-28 | Outpatient (CLI) | payer BC ==
--- NOTE | 2025-01-28 13:27 | CA ---
Transthoracic Echo Report Name: Danielle Das Age: 54 Gender: F : 1970 Exam Date: 01/28/2025 10:29 Exam Location: [facility] Ht (in): 65 Wt (lb): 300 Ordering Physician: Sagar Cabrera MD Attending/Referring Phys: [id number], Rick Lawnmower Mechanic Fabian Dowling, [id number] Procedure CPT: Indications: I10 HTN Cardiac Hx: Technical Quality: Good Contrast 1: Definity Total Dose (mL): 2 Contrast 2: Total Dose (mL): MEASUREMENTS (Male / Female) Normal Values 2D ECHO LV Diastolic Diameter PLAX 5.6 cm 4.2 - 5.9 / 3.9 - 5.3 cm LV Systolic Diameter PLAX 5.0 cm IVS Diastolic Thickness 1.3 cm 0.6 - 1.0 / 0.6 - 0.9 cm LVPW Diastolic Thickness 1.3 cm 0.6 - 1.0 / 0.6 - 0.9 cm LV Relative Wall Thickness 0.5 RV Internal Dim ED PLAX 3.7 cm LVOT Diameter 1.8 cm Aortic Root Diameter 2.5 cm LA Systolic Diameter LX 4.5 cm 3.0 - 4.0 / 2.7 - 3.8 cm LV Diastolic Volume MOD BP 239.6 cm??? 67 - 155 / 56 - 104 cm??? LV Systolic Volume MOD BP 174.5 cm??? 22 - 58 / 19 - 49 cm??? LV Ejection Fraction MOD BP 27.2 % >= 55 % LV Cardiac Index MOD BP 2777.4 cm???/min???m??? LV Diastolic Volume MOD 4C 238.9 cm??? LV Systolic Volume MOD 4C 173.6 cm??? LV Ejection Fraction MOD 4C 27.3 % LV Cardiac Index MOD 4C 2783.8 cm???/min???m??? LV Diastolic Length 4C 9.0 cm LV Systolic Length 4C 7.6 cm LV Diastolic Volume MOD 2C 205.0 cm??? LV Systolic Volume MOD 2C 170.9 cm??? LV Ejection Fraction MOD 2C 16.6 % LV Cardiac Index MOD 2C 1455.2 cm???/min???m??? LV Diastolic Length 2C 7.7 cm LV Systolic Length 2C 7.4 cm LA Volume 111.4 cm??? 18 - 58 / 22 - 52 cm??? LA Volume Index 43.2 cm???/m??? 16 - 28 cm???/m??? DOPPLER MV Peak Velocity 135.2 cm/s MV Peak Gradient 7.3 mmHg MV Mean Velocity 84.2 cm/s MV Mean Gradient 3.4 mmHg MV Velocity Time Integral 21.7 cm MV Area PHT 3.8 cm??? MR Peak Velocity 552.4 cm/s MR Peak Gradient 122.1 mmHg Mitral E Point Velocity 118.6 cm/s Mitral A Point Velocity 100.7 cm/s Mitral E to A Ratio 1.2 MV Deceleration Time 128.7 ms TR Peak Velocity 286.3 cm/s TR Peak Gradient 32.8 mmHg Right Atrial Pressure 5.0 mmHg Pulmonary Artery Systolic Pressu 37.8 mmHg Right Ventricular Systolic Press 37.8 mmHg FINDINGS Left Ventricle Left ventricular ejection fraction is estimated at 25-30%.moderate concentric left ventricular hypertrophy. Severely increased left ventricular diastolic volum. Severely decreased left ventricular ejection fraction. Right Ventricle Mild right ventricular dilatation. Reduced right ventricular global systolic function. Mild pulmonary hypertension. Right ventricular systolic pressure estimated at 38 mm hg. Right Atrium Normal right atrial size. Left Atrium Moderately increased left atrial diameter. Severely increased left atrial volume. Mildly increased left atrial area. Mitral Valve Mitral valve thickened. Mitral annular calcification. No mitral stenosis. Moderate mitral regurgitation. Aortic Valve Aortic valve is not very well-seen. Probable trileaflet valve.. No aortic stenosis. No aortic regurgitation. Tricuspid Valve Structurally normal tricuspid valve. No tricuspid stenosis. [id number] tricuspid regurgitation. Pulmonic Valve Structurally normal pulmonic valve. No pulmonic stenosis. Trace pulmonic regurgitation. Pericardium No pericardial effusion. Aorta Normal size aortic root and proximal ascending aorta. CONCLUSIONS Left ventricle is enlarged with decreased contractility globally estimate ejection fraction of 30 to 35%. Moderate mitral regurgitation mild to moderate tricuspid regurgitation aortic valve not well-seen probable trileaflet. No pericardial effusion. Right-sided pressures are not significantly enlarged but right ventricle is increased in size. Mild pulmonary hypertension but the quantification of right-sided pressures may be suboptimal Previewed by: Dr. Walker Mercado MD (Electronically Signed) Final Date: 28 Jan 2025 13:26
== END | disposition home or self-care (01) ==
LOC: RADECHMAIN 09:48
PROVIDERS: ATTEND Family Medicine
DX: I08.1 Rheumatic disorders of both mitral and tricuspid valves (principal); I10 Essential (primary) hypertension; I27.20 Pulmonary hypertension, unspecified
CPT/HCPCS: 93306; Q9957